=== PATIENT | male | born 1950 | race Caucasian/White ===

== ENCOUNTER → 2020-04-22 | Outpatient (CLI) | payer OTHER, SELFPAY ==
[~2020-04-22] MED LIST: ANTIVERT 12.512.5 MG PO; ASPIR 8181 MG PO; CARDURA 2MG TAB2 MG PO; FLOMAX0.4 MG PO; FOLIC ACID1 MG PO; HYDROCHLOROTHIA25 MG PO; LISINOPRIL20 MG PO; METFORMIN PO; METOPROLOL SUCC50 MG PO; SINGULAIR10 MG PO
== END ==
LOC: EMI 09:41
DX: R29.6 Repeated falls (principal); M47.812 Spondylosis without myelopathy or radiculopathy, cervical region; R90.89 Other abnormal findings on diagnostic imaging of central nervous system
CPT/HCPCS: 70553; 72141; A9577

== ENCOUNTER → 2020-11-12 | Outpatient (CLI) | payer OTHER | LOC: HEART 5 13:27 | DX: R07.89 Other chest pain (principal); R00.2 Palpitations ==

== ENCOUNTER → 2020-12-26 | Outpatient (CLI) | payer OTHER | LOC: ECHO 12:45 | DX: I48.91 Unspecified atrial fibrillation (principal); J98.4 Other disorders of lung | CPT/HCPCS: ECHO; 93306 ==

== ENCOUNTER → 2022-01-15 | Outpatient (CLI) | payer OTHER | LOC: RAD 08:30 | DX: R13.10 Dysphagia, unspecified (principal) | CPT/HCPCS: 74230; 92611-GN ==